=== PATIENT | male | born 2000 | race Caucasian/White ===

== ENCOUNTER 2022-06-05 19:49 | Emergency (ER) | payer SELFPAY ==
[2022-06-05 19:50] VITALS: BP 136/99; PULSE 101; RESP 18; TEMP 36.1; O2SAT 96; BMI 21.1
[2022-06-05 20:23] LABS: Color, Urine Yellow (Yellow); Glucose, Dipstick Normal (Normal); Leukocyte Esterase-Dipstick 100 /ul (Negative); Nitrite-Dipstick Negative (Negative); Occult Blood-Urine 10 /ul (Negative); Protein-Dipstick 30 mg/dl (Negative); Specific Gravity, Urine 1.025 (1.002-1.030); Urine Bilirubin Dipstick Negative (Negative); Urine Clarity Clear (Clear); Urine Urobilinogen 1 mg/dl (Normal)
--- NOTE | 2022-06-05 20:25 | RAD_ITS ---
STUDY: X-RAY - ABDOMEN/PELVIS REASON FOR EXAM: Male, 22 years old. ? renal stone TECHNIQUE: Single AP view of the abdomen / pelvis. COMPARISON: None. FINDINGS: There is an unremarkable bowel gas pattern. The visualized liver, spleen and kidneys are grossly normal in size and morphology. Normal soft tissue structures. Normal visualized osseous structures. RAD/Abdomen Single View (Portable) IMPRESSION: Normal x-ray examination of the abdomen and pelvis. Electronically Signed: Edward Villalta MD at 20:39 EDT ,
[2022-06-05 20:27] LABS: Ketone-Dipstick 150 mg/dl (Negative)
[2022-06-05 20:38] LABS: Bacteria 1+ /hpf (None Seen); Red Blood Cells-Urine 0-5 SEEN /hpf (0-5); Squamous Epithelial Cells - UA 5-10 SEEN /hpf (0-5)
[2022-06-05 20:39] LABS: Mucous, Urine 1+ /hpf (<or=2+); White Blood Cells 10-25 SEEN /hpf (0-5)
--- NOTE | 2022-06-05 21:30 | EX.ED.GUMALE ---
HPI History of Present Illness Chief Complaint: Complaint Informant: patient Narrative Narrative: Patient states he had an episode of hematuria earlier. This happened a second time but the third time there is no more blood. He does state that there was a little burning at the end of his penis but he has had no notable discharge. He did call the last girl that he was with and she evidently was checked already and had no illnesses. He has no joint pain. No rash. No nausea vomiting fevers or chills. He has no history of kidney stone. He does state he has been having some soreness to his back that he does a lot of lifting at work and this is very low in his back. Its just off and on that this occurs and has been going on for a long time. It is not CVA area. PFSH PFSH Home Medications doxycycline monohydrate 100 mg capsule 100 mg PO BID #14 caps 06/05/22 [Rx Last Taken Unknown] Allergy/AdvReac Type Severity Reaction Status Date / Time bee venom protein (honey bee) Allergy Hives Verified 06/05/22 19:52 [bee sting] Social History Smoking Status: Never smoker ROS ROS ED Constitutional Constitutional ED: Denies chills or fever(s) ENT ENT ED: Denies rhinorrhea or sore throat Respiratory/Chest Respiratory/Chest: Denies cough Gastrointestinal Gastrointestinal: Denies abdominal pain, constipation, diarrhea, melena, nausea or vomiting Genitourinary Genitourinary ED: Reports dysuria and hematuria; Denies urinary frequency Musculoskeletal Musculoskeletal: Reports back pain; Denies arthralgias, myalgias or neck pain Integumentary Denies rash Endocrine Endocrinology: Denies polydipsia or polyuria Hematologic/Lymphatic Hematologic/Lymphatic: Denies easy bleeding or easy bruising Allergic/Immunologic Allergic/Immunologic ED: Denies urticaria EXAM Physical Exam Const Vital Signs: 06/05/22 19:50 Temperature 96.9 F L Temperature Source Temporal Pulse Rate 101 H Respiratory Rate 18 Blood Pressure 136/99 H Blood Pressure Mean 111 Pulse Ox 96 Oxygen Delivery Method Room Air Positive well nourished and well developed General Appearance ED: well developed; Negative for pallor HEENT Reports moist mucous membranes HEENT Narrative: No petechia or purpura. No exudate. Eyes General Eye ED: Negative for scleral icterus GI non-tender and non-distended Palpation: soft no CVA tenderness Narrative: No CVA tenderness at all. No inguinal lymphadenopathy. He does have a narrowed meatus with minimal erythema but it is still open. No discharge. No ulcerations. Back/Spine no CVA tenderness Skin General Skin Exam: Negative for jaundice or pallor MDM MDM MDM Narrative Medical decision making narrative: X-ray shows no acute process. Urine does have a fair number of white cells. This is not a perfectly clean-catch. But there is also leukocyte Estrace. With being a young male with some blood some dysuria and recent sexual contact have to consider STI as a likely cause. I will treat for this. I have sent off GC and chlamydia but results are pending. I will also send off urine culture considering the results. We discussed reasons to return follow-up further checking including HIV checking Lab Data Attestation: I reviewed the patient's lab results. Labs: Laboratory Results - last 24 hr 06/05/22 20:09 Urine Color Yellow Urine Clarity Clear Urine pH 5.0 Ur Specific [place] 1.025 Urine Protein 30 H Urine Glucose (UA) Normal Urine Ketones 150 A* Urine Occult Blood 10 H Urine Nitrite Negative Urine Bilirubin Negative Urine Urobilinogen 1 H Ur Leukocyte Esterase 100 H Urine RBC 0-5 SEEN Urine WBC 10-25 SEEN Ur Squamous Epith Cells 5-10 SEEN Urine Bacteria 1+ Urine Mucus 1+ Radiography Diagnostic Testing: Clinical Impression(s) from Imaging Studies KUB X-Ray 06/05/22 20:25 IMPRESSION: Normal x-ray examination of the abdomen and pelvis. Electronically Signed: Edward Villalta MD at 20:39 EDT , Single view x-ray of the abdomen shows no large renal stone or acute abnormality. Discharge Plan Triage Chief Complaint: Complaint ED Provider: [facility] Dx/Rx/DC Orders Clinical Impression: Urethritis Instructions: ED Urethritis Infec Vs Inflam ... Prescriptions: New doxycycline monohydrate 100 mg capsule 100 mg PO BID Qty: 14 0RF Primary Care Provider: Care Physician,No Primary Referrals: Malys,Radha, DO [Med Staff - Active Staff] - 1 Week Care Physician,No Primary [Primary Care Provider] - Disposition Disposition: Home, Self Care
[2022-06-05] MEDS: Doxycycline 100 MG CAPSULE PO (21:54)
[2022-06-05] MEDS: Ceftriaxone 500 MG Vial IM (21:55)
[2022-06-05 21:56] VITALS: RESP 17
[2022-06-08 22:07] LABS: Chlamydia By Nucleic Acid AMP Negative (Negative)
[2022-06-09 11:24] LABS: Gonococcus By Nucleic Acid AMP Positive (Negative)
== END 2022-06-05 21:57 | disposition home or self-care (01) ==
PROVIDERS: Emergency Provider Emergency Medicine; Visit Provider Emergency Medicine
DX: N34.2 Other urethritis (principal)
CPT/HCPCS: 74018; 81001; 87086; 87491; 87591; 96372; 99283; A4216